=== PATIENT | male | born 1995 | race Caucasian/White ===

== ENCOUNTER 2016-06-17 18:22 | Emergency (ER) | payer SELFPAY ==
[2016-06-17 18:58] LABS: Bilirubin Negative (Negative); Blood, Urine Negative (Negative); Clarity Clear (Clear); Glucose, Urine (Dipstick) Negative (Negative); Leukocyte Negative (Negative); Nitrite Negative (Negative); Protein, Urine (Dipstick) 30 mg/dL (Neg-Trace); Specific Gravity, Urine 1.015 (1.005-1.030); Urobilinogen 0.2 mg/dL (0.2-1.0); pH, Urine 8.5 (5.0-9.0)
[2016-06-17 19:10] LABS: Bacteria/HPF None Seen HPF (None Seen); RBC/HPF None Seen HPF (0-3); Squamous Epithelial 0-3 HPF (0-3); WBC/HPF None Seen HPF (0-3)
--- NOTE | 2016-06-17 21:21 | ERRECORD ---
[facility] EMERGENCY RECORD HPI URI (19:52 DHAM) CHIEF COMPLAINT: Patient presents for evaluation of nasal congestion, Patient presents for evaluation of fever and body aches. HISTORIAN: History provided by patient. LOCATION: No localizing symptoms. QUALITY: Pain is dull in nature, described as aching. SEVERITY: Current severity of pain rated as 4/10. TIME COURSE: Gradual onset of symptoms, 45, hours prior to arrival, There has been no change in the patient's symptoms over time. ASSOCIATED WITH: No associated chest pain, Associated with chills, Associated with fever, No associated headache, No associated neck pain, No associated shortness of breath, frequent urination for a couple of days. EXACERBATED BY: Patient's condition exacerbated by nothing. RELIEVED BY: Patient's condition relieved by over the counter medications, motrin taken 2 hours ago. ROS (19:52 DHAM) CONSTITUTIONAL: Historian reports chills, reports fever. EYES: Historian denies eye pain, denies eye redness, denies eye discharge. ENT: Historian reports rhinorrhea, denies sore throat. CARDIOVASCULAR: Historian denies chest pain, reports diaphoresis, denies edema, denies syncope, denies palpitations. RESPIRATORY: Historian denies cough, denies shortness of breath, denies sputum, denies wheezing. GI: Historian denies abdominal pain, denies constipation, denies diarrhea, denies nausea, denies vomiting. MUSCULOSKELETAL: Historian reports arthralgias, denies injury, denies joint redness, reports myalgias, denies neck pain. SKIN: Historian denies rash, denies skin changes, denies skin lesions. NEUROLOGIC: Historian denies dizziness, denies focal weakness, denies gait changes, denies headache, denies mental status changes, denies paresthesias. HEMO/LYMPHATIC: Historian denies abnormal blood clotting, denies easy bruising. ALLERGIC/IMMUNOLOGIC: Historian denies frequent infections, denies hives. PAST MEDICAL HISTORY PSYCHIATRIC HISTORY: Notes: DISSOCIATIVE DISORDER. (18:36 EROG) NOTES: HAVE EXAMINED AND AGREE WITH PMHX, SOCIAL HX AND PAST FAMILY HX as noted in nursing docuentation. (19:58 DHAM) KNOWN ALLERGIES Penicillins &a-1R&a+25V*p+0X*[id number]*c202B*c15G*c2P*p-0X&a-25V&a+1R Name: Alvarez Chavarria : 1995 M21 MedRec: [id number] AcctNum: [id number] Prepared: Sat Jun 18, 2016 03:03 by Interface Page 1 of 3 pMD [facility] EMERGENCY RECORD CURRENT MEDICATIONS (18:34 EROG) None VITAL SIGNS (18:29 EROG) VITAL SIGNS: BP: 134/63, Pulse: 79, Resp: 16, Temp: 98.8 (Tympanic), Pain: 5 (Sharp), O2 sat: 100 on Room Air, Time: 06/17/2016 18:29. PHYSICAL EXAM (19:52 DHAM) CONSTITUTIONAL: Vital signs reviewed, Patient afebrile, Pulse normal, Blood pressure normal, Respiratory rate normal, Patient appears non toxic, Patient appears in pain, in mild pain distress, Patient alert and oriented to person, place and time. HEAD: Head exam included findings of head atraumatic, normocephalic. EYES: Eye exam included findings of eyelids normal to inspection, Pupils equally round and reactive to light, Extraocular muscles intact, Conjunctiva normal. ENT: Ear exam normal, external ear normal, tympanic membranes normal, Nose exam normal, no bleeding from nares, nasal congestion and clear rhinorrhea, Pharynx exam normal, Uvula exam normal, Tonsil exam normal, not enlarged, no exudates, Mouth exam normal, mucous membranes moist. NECK: Neck exam included findings of normal range of motion, Trachea midline, no meningeal signs, no cervical adenopathy, no carotid bruits, no jugular venous distention, no cervical adenopathy. RESPIRATORY CHEST: Respiratory exam included findings of no respiratory distress, Breath sounds clear, No wheezing, No rales, Breath sounds not diminished. CARDIOVASCULAR: Cardiovascular exam included findings of heart rate regular rate and rhythm, Heart sounds normal, Point of maximal impulse normal, Pedal pulses normal. ABDOMEN MALE: Abdominal exam included findings of abdomen nontender, Bowel sounds normal, Liver normal, Spleen normal, no distension, no peritoneal signs. BACK: Back exam normal. UPPER EXTREMITY: Upper extremity exam normal, Motor strength normal, Sensation intact. LOWER EXTREMITY: Lower extremity exam normal. NEURO: Neuro exam findings include patient oriented to person, place and time, Speech normal, Memory normal, Cranial nerves intact, Deep tendon reflexes normal, no focal motor deficits, no focal sensory deficits. SKIN: Skin exam included findings of skin warm, and, moist, no rash. LYMPHATIC: Lymphatic exam normal, Lymphatic exam included findings of cervical nodes normal. &a-1R&a+25V*p+0X*f0468R*c202B*c15G*c2P*p-0X&a-25V&a+1R Name: Alvarez Chavarria : 1995 M21 MedRec: [id number] AcctNum: [id number] Prepared: Sat Jun 18, 2016 03:03 by Interface Page 2 of 3 pMD [facility] EMERGENCY RECORD PSYCHIATRIC: Psychiatric exam included findings of patient oriented to person place and time, Normal affect. PROBLEM LIST No recorded problems DIAGNOSIS (19:59 DHAM) FINAL: PRIMARY: upper respiratory infection. PRESCRIPTION No recorded prescriptions DISPOSITION PATIENT: Disposition Type: Discharge, Disposition: *Discharge Home. (19:59 DHAM) Disposition Transport: Ambulatory, Condition: Good, Patient left the department. (21:03 GABI) Lamar: GABI=SHAD Moore, Tho RAMIREZ=MD Annmarie, Nick LAGUNA=SHAD Vargas, Jad &a-1R&a+25V*p+0X*p8337W*c202B*c15G*c2P*p-0X&a-25V&a+1R Name: Alvarez Chavarria : 1995 M21 MedRec: [id number] AcctNum: [id number] Prepared: Sat Jun 18, 2016 03:03 by Interface Page 3 of 3 pMD [facility]
--- NOTE | 2016-06-17 21:22 | PICIS ---
[facility] EMERGENCY RECORD TRIAGE (18:34 EROG) TRIAGE NOTES: FEVER, CHILL, CONGESTION, SORE THROAT WITH SWELLING TO THROAT. PAIN IN BILATERAL KIDNEY AREA. (18:34 EROG) PATIENT: NAME: Alvarez Chavarria, AGE: 21, GENDER: male, : Sat 1995, TIME OF GREET: MonJun 17, 2016 18:23, PREFERRED LANGUAGE: Persian, ETHNICITY: Not or , FALL RISK: NO, ECODE BILLING MAP: [facility], SSN: [id number], Zip Code: [address], KG WEIGHT: 70.31, HEIGHT/LENGTH: 165.10cm, BMI: 25.79, PHONE: , , , PERSON ID: [id number], PCP: NONE. (18:34 EROG) COMPLAINT: SORE THROAT/KIDNEY PAIN. (18:34 EROG) ADMISSION: URGENCY: 3 Urgent, ADMISSION SOURCE: Other, TRANSPORT: CAR, BED: TRIAGE. (18:34 EROG) ASSESSMENT: Assessment: COUGH, CONGESTION, FEVER, SORE THROAT, Symptoms began 6 days ago. (18:36 EROG) PAIN: Patient complains of pain described as, aching, on a scale 0-10 patient rates pain as 5, Pain is constant, Aggravating factors:, Aggravating factors include LAYING DOWN, No relieving factors. (18:36 EROG) IMMUNIZATIONS: Flu vaccine not up to date, Pneumococcal vaccine not up to date. (18:36 EROG) SIRS SCORING: Heart Rate 55-109 (0), Temp range 96.8-101.1 (0), respiratory rate 12-24 (0), Mental Status altered: no (0), Yes, Infection or Suspected Infection. (18:36 EROG) PROVIDERS: TRIAGE NURSE: Jad Vargas RN. (18:34 EROG) VITAL SIGNS: BP 134/63, Pulse 79, Resp 16, Temp 98.8, (Tympanic), Pain 5, (Sharp), O2 Sat 100, on Room Air, Time 06/17/2016 18:29. (18:29 EROG) KNOWN ALLERGIES Penicillins CURRENT MEDICATIONS (18:34 EROG) None VITAL SIGNS (18:29 EROG) VITAL SIGNS: BP: 134/63, Pulse: 79, Resp: 16, Temp: 98.8 (Tympanic), Pain: 5 (Sharp), O2 sat: 100 on Room Air, Time: 06/17/2016 18:29. NURSING PROCEDURE: BEDSIDE TESTING (18:49 EROG) PATIENT IDENTIFIER: Patient actively involved in identification process, Patient's identity verified by patient stating name, Patient's identity verified by hospital ID bracelet. RAPID STREP: Rapid strep indicated for throat pain, Rapid strep indicated for tonsillar swelling, Notes: ALSO NASAL SWAB FOR INFLUENZA COLLECTED BY DR. CASTILLO. NURSING PROCEDURE: DISCHARGE NOTE (20:55 AGAN) DISCHARGE: Patient discharged to home, ambulating without &a-1R&a+25V*p+0X*e7576T*c202B*c15G*c2P*p-0X&a-25V&a+1R Name: Alvarez Chavarria : 1995 M21 MedRec: [id number] AcctNum: [id number] Prepared: Sat Jun 18, 2016 03:10 by Interface Page 1 of 6 pMD [facility] EMERGENCY RECORD assistance, driving self, unaccompanied, Summary of Care printed/ provided, Patient requested and was provided an electronic copy of Discharge Instructions, Transition record given to patient, Discharge instructions given to patient, Above person(s) verbalized understanding of discharge instructions and follow-up care, Patient discharged by, Dr. Castillo, Patient treated and evaluated by physician. BELONGINGS: Belongings remain with patient, Valuables remain with patient. NURSING PROCEDURE: URINE COLLECTION (18:50 EROG) PATIENT IDENTIFIER: Patient actively involved in identification process, Patient's identity verified by patient stating name, Patient's identity verified by hospital ID bracelet. URINE COLLECTION MALE: Urine collection indicated for "KIDNEY PAIN", Urine collected by void, output amount (mL) 55, urine yellow in color, and clear, Specimen labeled in the presence of the patient and sent to lab. ORDER DETAILS Order Name: Influenza A&B Ag Screen, Status: Active, Time: 18:42 06/17/2016, User: [facility], - Ordered for: MD Castillo Darren, - Entered by: MD Castillo Darren - MonJun 17, 2016 18:42, - Quantity: 1, Order Name: Strep Group A Screen, Status: Active, Time: 18:42 06/17/2016, User: JAMES, - Ordered for: MD Castillo Darren, - Entered by: MD Castillo Darren - MonJun 17, 2016 18:42, - Quantity: 1, Order Name: Urinalysis w/ Rflx Microscopic, Status: Active, Time: 18:42 06/17/2016, User: JAMES, - Ordered for: MD Castillo Darren, - Entered by: MD Castillo Darren - MonJun 17, 2016 18:42, - Quantity: 1. HPI URI (19:52 DHAM) CHIEF COMPLAINT: Patient presents for evaluation of nasal congestion, Patient presents for evaluation of fever and body aches. HISTORIAN: History provided by patient. LOCATION: No localizing symptoms. QUALITY: Pain is dull in nature, described as aching. SEVERITY: Current severity of pain rated as 4/10. TIME COURSE: Gradual onset of symptoms, 45, hours prior to arrival, There has been no change in the patient's symptoms over time. ASSOCIATED WITH: No associated chest pain, Associated with chills, Associated with fever, No associated headache, No associated neck pain, No associated shortness of breath, frequent urination for a couple of days. EXACERBATED BY: Patient's condition &a-1R&a+25V*p+0X*n6584D*c202B*c15G*c2P*p-0X&a-25V&a+1R Name: Alvarez Chavarria : 1995 M21 MedRec: [id number] AcctNum: [id number] Prepared: Sat Jun 18, 2016 03:10 by Interface Page 2 of 6 pMD [facility] EMERGENCY RECORD exacerbated by nothing. RELIEVED BY: Patient's condition relieved by over the counter medications, motrin taken 2 hours ago. ROS (19:52 DHAM) CONSTITUTIONAL: Historian reports chills, reports fever. EYES: Historian denies eye pain, denies eye redness, denies eye discharge. ENT: Historian reports rhinorrhea, denies sore throat. CARDIOVASCULAR: Historian denies chest pain, reports diaphoresis, denies edema, denies syncope, denies palpitations. RESPIRATORY: Historian denies cough, denies shortness of breath, denies sputum, denies wheezing. GI: Historian denies abdominal pain, denies constipation, denies diarrhea, denies nausea, denies vomiting. MUSCULOSKELETAL: Historian reports arthralgias, denies injury, denies joint redness, reports myalgias, denies neck pain. SKIN: Historian denies rash, denies skin changes, denies skin lesions. NEUROLOGIC: Historian denies dizziness, denies focal weakness, denies gait changes, denies headache, denies mental status changes, denies paresthesias. HEMO/LYMPHATIC: Historian denies abnormal blood clotting, denies easy bruising. ALLERGIC/IMMUNOLOGIC: Historian denies frequent infections, denies hives. PAST MEDICAL HISTORY PSYCHIATRIC HISTORY: Notes: DISSOCIATIVE DISORDER. (18:36 EROG) NOTES: HAVE EXAMINED AND AGREE WITH PMHX, SOCIAL HX AND PAST FAMILY HX as noted in nursing docuentation. (19:58 DHAM) PHYSICAL EXAM (19:52 DHAM) CONSTITUTIONAL: Vital signs reviewed, Patient afebrile, Pulse normal, Blood pressure normal, Respiratory rate normal, Patient appears non toxic, Patient appears in pain, in mild pain distress, Patient alert and oriented to person, place and time. HEAD: Head exam included findings of head atraumatic, normocephalic. EYES: Eye exam included findings of eyelids normal to inspection, Pupils equally round and reactive to light, Extraocular muscles intact, Conjunctiva normal. ENT: Ear exam normal, external ear normal, tympanic membranes normal, Nose exam normal, no bleeding from nares, nasal congestion and clear rhinorrhea, Pharynx exam normal, Uvula exam normal, Tonsil exam normal, not enlarged, no exudates, Mouth exam normal, mucous membranes moist. &a-1R&a+25V*p+0X*b8734S*c202B*c15G*c2P*p-0X&a-25V&a+1R Name: Alvarez Chavarria : 1995 M21 MedRec: [id number] AcctNum: [id number] Prepared: Sat Jun 18, 2016 03:10 by Interface Page 3 of 6 pMD [facility] EMERGENCY RECORD NECK: Neck exam included findings of normal range of motion, Trachea midline, no meningeal signs, no cervical adenopathy, no carotid bruits, no jugular venous distention, no cervical adenopathy. RESPIRATORY CHEST: Respiratory exam included findings of no respiratory distress, Breath sounds clear, No wheezing, No rales, Breath sounds not diminished. CARDIOVASCULAR: Cardiovascular exam included findings of heart rate regular rate and rhythm, Heart sounds normal, Point of maximal impulse normal, Pedal pulses normal. ABDOMEN MALE: Abdominal exam included findings of abdomen nontender, Bowel sounds normal, Liver normal, Spleen normal, no distension, no peritoneal signs. BACK: Back exam normal. UPPER EXTREMITY: Upper extremity exam normal, Motor strength normal, Sensation intact. LOWER EXTREMITY: Lower extremity exam normal. NEURO: Neuro exam findings include patient oriented to person, place and time, Speech normal, Memory normal, Cranial nerves intact, Deep tendon reflexes normal, no focal motor deficits, no focal sensory deficits. SKIN: Skin exam included findings of skin warm, and, moist, no rash. LYMPHATIC: Lymphatic exam normal, Lymphatic exam included findings of cervical nodes normal. PSYCHIATRIC: Psychiatric exam included findings of patient oriented to person place and time, Normal affect. LAB INTERPRETATION (19:58 DHAM) INTERPRETATION: Influenza negative. EVENTS TRANSFER: Triage to Emergency Triage. (MonJun 17, 2016 18:34 EROG) Emergency Triage to Main ED -03. (18:36 EROG) Removed from Emergency Main ED -03. (21:03 AGAN) O2SAT INTERPRETATION (19:51 DHAM) O2SAT: Single pulse oximetry, Oxygen saturation 100%, on room air, Oxygen saturation interpretation: Normal, No intervention required. PROBLEM LIST No recorded problems DIAGNOSIS (19:59 DHAM) FINAL: PRIMARY: upper respiratory infection. DISPOSITION PATIENT: Disposition Type: Discharge, Disposition: *Discharge &a-1R&a+25V*p+0X*a2843C*c202B*c15G*c2P*p-0X&a-25V&a+1R Name: Alvarez Chavarria : 1995 M21 MedRec: [id number] AcctNum: [id number] Prepared: Sat Jun 18, 2016 03:10 by Interface Page 4 of 6 pMD [facility] EMERGENCY RECORD Home. (19:59 DHAM) Disposition Transport: Ambulatory, Condition: Good, Patient left the department. (21:03 AGAN) INSTRUCTION (20:02 DHAM) DISCHARGE: UPPER RESP INFECTION NO ANTIBIOTIC TREATMENT ADULT. SPECIAL: aleve 2 twice a day for aches and fevers sudafed during the day for congestion and afrin 12 hour nasal spray at night for congestion. return if fevers haven't resolved after 4 days total, shortness of breath or for any new concerns. PRESCRIPTION No recorded prescriptions IMAGING *DISCHARGE INSTRUCTIONS RECEIPT: Image captured from scanner. (21:03 AGAN) *SUPPLY CHARGE SHEET: Image captured from scanner. (21:04 AGAN) ADMIN DIGITAL SIGNATURE: SHAD Vargas, Jad. (20:57 EROG) MD Annmarie, Nick. (Sat Jun 18, 2016 03:01 DHAM) RESULTS (19:51 DHAM) MICROBIOLOGY: Influenza A&B Ag Screen: [id number] Collection DT: MonJun 17, 2016 18:54, See comment below , @ ER ROOM#: ED-03 Source: Nasal swab Spec Desc: , Influenza A Antigen: NEGATIVE for the , presence of , INFLUENZA A Antigen , Influenza B Antigen: NEGATIVE for the , presence of , INFLUENZA B Antigen , The rapid Flu A&B test can distinguish between influenza A , Influenza A&B Ag Screen See comment below , and B viruses, but it does not differentiate influenza , Influenza A&B Ag Screen See comment below , subtypes. , Influenza A&B Ag Screen See comment below , Influenza A&B Ag Screen See comment below , Influenza A&B Ag Screen See comment below , Influenza A&B Ag Screen See comment below , characteristics of this device with human specimens infected , Influenza A&B Ag Screen See comment below , with the 2009 H1N1 influenza virus have not been , Influenza A&B Ag Screen See comment below , established. For example: this test cannot distinguish , Influenza A&B Ag Screen See comment below , influenza infections &a-1R&a+25V*p+0X*t6035X*c202B*c15G*c2P*p-0X&a-25V&a+1R Name: Alvarez Chavarria : 1995 M21 MedRec: [id number] AcctNum: [id number] Prepared: Sat Jun 18, 2016 03:10 by Interface Page 5 of 6 pMD [facility] EMERGENCY RECORD caused by novel H1N1 influenza A , Influenza A&B Ag Screen See comment below , viruses versus seasonal influenza A viruses. , Influenza A&B Ag Screen See comment below , , Influenza A&B Ag Screen See comment below , A negative result does not exclude influenza virus , Influenza A&B Ag Screen See comment below , infection; therefore, if more conclusive testing is desired, , Influenza A&B Ag Screen See comment below , follow up confirmatory testing is warranted., Influenza A&B Ag Screen See comment below . LABORATORY: Urine Microscopic Collection DT: MonJun 17, 2016 18:54, RBC/HPF None Seen HPF, Range (0-3), WBC/HPF None Seen HPF, Range (0-3), Squamous Epithelial 0-3 HPF, Range (0-3), Bacteria/HPF None Seen HPF, Range (None Seen). Urinalysis w/ Rflx Microscopic Collection DT: MonJun 17, 2016 18:54, Color Yellow , Range (Yellow), Clarity Clear , Range (Clear), Specific [place], Urine 1.015 , Range (1.005-1.030), pH, Urine 8.5 , Range (5.0-9.0), Leukocyte Negative , Range (Negative), Nitrite Negative , Range (Negative), *Protein, Urine (Dipstick) 30 - H mg/dL, Range (Neg-Trace), Glucose, Urine (Dipstick) Negative mg/dL, Range (Negative), Ketone, Urine Negative mg/dL, Range (Negative), Urobilinogen 0.2 mg/dL, Range (0.2-1.0), Bilirubin Negative , Range (Negative), Blood, Urine Negative , Range (Negative). MICROBIOLOGY: Strep Group A Screen: [id number] Collection DT: MonJun 17, 2016 19:07, See comment below , @ ER ROOM#: ED-03 Source: Throat Spec Desc: PENDING, Strep A Negative CDC recommends , confirmation by , culture on all , negative , Strep negative line 1 Group A , Streptococcus rapid , screens. Please , order , Strep negative line 2 a throat culture if , clinically , indicated. , Rapid Strep Screen:Throat Negative . Lamar: WINSOMEN=SHAD Moore, Tho RAMIREZ=MD Annmarie, Nick BUSTILLOSOG=SHAD Vargas, Jad &a-1R&a+25V*p+0X*q3250W*c202B*c15G*c2P*p-0X&a-25V&a+1R Name: Alvarez Chavarria : 1995 M21 MedRec: [id number] AcctNum: [id number] Prepared: Anton Jun 18, 2016 03:10 by Interface Page 6 of 6 pMD MTDD
== END 2016-06-17 20:55 | disposition home or self-care (01) ==
LOC: MADERS 18:22
DX: J06.9 Acute upper respiratory infection, unspecified (principal)
CPT/HCPCS: 81003; 81015; 87430; 99283

== ENCOUNTER 2016-12-04 20:27 | Emergency (ER) | payer SELFPAY ==
[2016-12-04] MEDS ORDERED: HYDROcodone/Acetaminophen 10/325 mg Tablet ONE (21:03)
[2016-12-04] MEDS ORDERED: Ciprofloxacin 500 MG TAB ONE (21:04)
[2016-12-04] MEDS ORDERED: Naproxen 500 MG TAB ONE (21:04)
[2016-12-04] MEDS ORDERED: Sulfameth/Trimethoprim DS 800-160mg TAB ONE (21:04)
== END 2016-12-04 21:14 | disposition home or self-care (01) ==
LOC: MADERS 20:27
DX: L02.811 Cutaneous abscess of head [any part, except face] (principal); F20.9 Schizophrenia, unspecified; F43.10 Post-traumatic stress disorder, unspecified; F44.81 Dissociative identity disorder; Z87.891 Personal history of nicotine dependence
CPT/HCPCS: 99283